=== PATIENT | female | born 1995 | race Caucasian/White ===

== ENCOUNTER → 2016-10-30 | Outpatient (CLI) | payer OTHER ==
--- NOTE | 2016-10-30 13:53 | DIAGNOSTIC IMAGING REPORT ---
LEFT ANKLE MIN 3 VIEWS CLINICAL HISTORY: LEFT ANKLE PAIN pain COMPARISON: None. DISCUSSION: The bones and joint spaces appear intact. There is no evidence of fracture, dislocation or bony disease. There is no evidence for soft tissue swelling. IMPRESSION: Negative study. Electronically signed by: Talon Brady M.D. 10/30/2016 1:52 PM Dictated Date/Time: 10/30/2016 1:52 PM
== END | disposition home or self-care (01) ==
LOC: C.RDSM 14:28
PROVIDERS: ATTEND Family Medicine
DX: M25.571 Pain in right ankle and joints of right foot (principal)

== ENCOUNTER → 2017-04-03 | Outpatient (CLI) | payer OTHER ==
--- NOTE | 2017-04-03 17:38 | DIAGNOSTIC IMAGING REPORT ---
RIGHT KNEE MRI HISTORY: Right knee pain. COMPARISON STUDY: Right knee 04/01/2017. TECHNIQUE: Multiplanar multisequence MRI of the right knee was performed according to standard department protocol without the use of contrast. FINDINGS: Menisci: The medial and lateral menisci are intact. Ligaments: There is a complete tear of the MCL at its proximal attachment. There may be a tiny avulsion fracture from the torn proximal MCL best seen on coronal image 13 which measures 6 mm. The LCL and PCL are intact. There is an abnormal appearance to the proximal attachment of the ACL which also likely represents a full-thickness tear. Extensor mechanism: The quadriceps tendon and patellar ligament are intact. Articular cartilage and bone: The articular cartilage is intact, and normal marrow signal intensity is seen throughout the imaged osseous structures. Joint effusion: Moderate to large. Soft tissues: Subcutaneous edema seen throughout the knee. There is also extensive subcutaneous edema and likely hemorrhage at the torn proximal MCL. IMPRESSION: 1. Full-thickness tear of the proximal MCL. There is suggestion of a small avulsion fracture from the medial femoral condyle due to the torn MCL. The bony fragment measures 6 mm. 2. Probable full-thickness ACL tear. 3. Moderate to large joint effusion. Electronically signed by: Jaylon Mohan M.D. 04/03/2017 5:36 PM Dictated Date/Time: 04/03/2017 5:27 PM
== END | disposition home or self-care (01) ==
PROVIDERS: ATTEND Family Medicine
DX: S83.411A Sprain of medial collateral ligament of right knee, initial encounter (principal); X58.XXXA Exposure to other specified factors, initial encounter; M25.461 Effusion, right knee